=== PATIENT | male | born 1995 | race African-American/Black ===

== ENCOUNTER 2017-01-19 17:28 | Emergency (ER) | payer MEDICAID ==
[2017-01-19 18:03] VITALS: BP 117/72
--- NOTE | 2017-01-19 20:11 | ED Physician Documentation ---
History of Present Illness - Stated complaint Stated Complaint: ABD PX - Chief complaint Chief Complaint: General - Additonal information Additional information: hx from pt 21 male allergic to cats exposed to cats sneezing watery eyes cough wheezing and upper abd pain no NVD no bad food took antihistamine but not better tmax 99 needs a note for work Review of Systems Constitutional: denies: Fever, Chills Nose: reports: Congestion, Other (sneezing, watery eyes) Respiratory: reports: Dyspnea GI: reports: Abdominal Pain. denies: Nausea, Vomiting Skin: denies: Rash PD PAST MEDICAL HISTORY - Past Medical History Past Medical History: No - Past Surgical History Past Surgical History: No - Present Medications Home Medications: Ambulatory Orders Medication Instructions Recorded Confirmed Albuterol Sulfate [Proair Hfa 2 puffs INH Q4H PRN #1 inhaler 01/19/17 Inhaler] Cetirizine [ZyrTEC] 10 mg PO DAILY #5 tablet 01/19/17 Sucralfate 1 gm PO ACHS #20 tablet 01/19/17 predniSONE [Deltasone] 60 mg PO DAILY 5 Days tablet 01/19/17 - Allergies Allergies/Adverse Reactions: Allergies Allergy/AdvReac Type Severity Reaction Status Date / Time iodine Allergy Unknown Verified 01/19/17 18:03 - Social History Does the pt smoke?: No Smoking Status: Never smoker PD ED PE NORMAL - Vitals Vital signs reviewed: Yes - General General: Alert and oriented X 3 - HEENT HEENT: Other (puffy eyes, pharynx benign s swelling) - Neck Neck: Supple, no meningeal sign - Cardiac Cardiac: RRR - Respiratory Respiratory: No respiratory distress, Clear bilaterally - Abdomen Abdomen: Other (mild TTP upper abd) - Derm Derm: Normal color - Neuro Neuro: Alert and oriented X 3 Results - Vitals Vitals: Vital Signs - 24 hr 01/19/17 17:59 Temperature 36.1 C L Heart Rate 74 Respiratory 18 Rate Blood Pressure 117/72 O2 Saturation 97 Oxygen O2 Source Room air PD MEDICAL DECISION MAKING - ED course ED course: pt felt better with meds given in the ER Departure - Departure Disposition: 01 Home, Self Care Clinical Impression: Allergy to cats Condition: Good Instructions: ED Allergic Reaction General Other Prescriptions: Albuterol Sulfate [Proair Hfa Inhaler] 2 puffs INH Q4H PRN #1 inhaler PRN Reason: Shortness Of Air/Wheezing Cetirizine [ZyrTEC] 10 mg PO DAILY #5 tablet predniSONE [Deltasone] 60 mg PO DAILY 5 Days tablet Sucralfate 1 gm PO ACHS #20 tablet Forms: Activity restrictions
[2017-01-19] MEDS: ALBUTEROL NEB 2.5 MG/3 ML INH STA (20:20)
[2017-01-19] MEDS ORDERED: SUCRALFATE 1 GM/10 ML UDC ONE (20:25)
[2017-01-19] MEDS ORDERED: predniSONE 20 MG TABLET ONE (20:25)
[2017-01-19] MEDS: SUCRALFATE 1 GM/10 ML UDC PO STA (20:27)
[2017-01-19] MEDS: predniSONE 20 MG TABLET PO STA (20:27)
[2017-01-19] MEDS ORDERED: ALBUTEROL NEB 2.5 MG/3 ML INH ONE (20:31)
== END 2017-01-19 21:29 | disposition home or self-care (01) ==
LOC: EDBD → ED 17:28
DX: J30.81 Allergic rhinitis due to animal (cat) (dog) hair and dander (principal)
CPT/HCPCS: 94640; 99283

== ENCOUNTER 2017-10-06 20:25 | Emergency (ER) | payer MEDICAID ==
[2017-10-06 20:31] VITALS: BP 122/76
[2017-10-06] MEDS ORDERED: HYDROcod/ACET 5/325 Prepack 4 PO STA (20:38)
[2017-10-06] MEDS ORDERED: CLINDAMYCIN 150 MG CAPSULE PO STA (20:38)
--- NOTE | 2017-10-06 20:39 | ED Physician Documentation ---
PD HPI HEENT - Stated complaint Stated Complaint: TOOTH PX - Chief complaint Chief Complaint: Heent - History obtained from History obtained from: Patient - History of Present Illness Timing - onset: Today (He is very painful left maxillary tooth today without facial swelling or fevers.) Review of Systems Constitutional: reports: Reviewed and negative Nose: reports: Reviewed and negative Cardiac: reports: Reviewed and negative PD PAST MEDICAL HISTORY - Past Medical History Past Medical History: No - Past Surgical History Past Surgical History: No - Present Medications Home Medications: Ambulatory Orders Medication Instructions Recorded Confirmed Clindamycin [Cleocin] 300 mg PO Q6H 10 Days capsule 10/06/17 HYDROcod/ACETAM 5/325 [[place] 5/325] 1 - 2 ea PO Q6H PRN #15 tablet 10/06/17 Ibuprofen [Motrin] 800 mg PO Q8H PRN #30 tablet 10/06/17 - Allergies Allergies/Adverse Reactions: Allergies Allergy/AdvReac Type Severity Reaction Status Date / Time iodine Allergy Unknown Verified 10/06/17 20:30 - Social History Does the pt smoke?: No Smoking Status: Never smoker Does the pt drink ETOH?: Yes Does the pt have substance abuse?: No - Immunizations Immunizations are current?: Yes PD ED PE NORMAL - Vitals Vital signs reviewed: Yes - General General: Alert and oriented X 3, No acute distress - HEENT HEENT: Other (Anterior cavity left maxillary canine with filling in place behind the cavity, tooth is tender but no facial swelling or trismus.) - Neck Neck: Supple, no meningeal sign, No bony TTP - Neuro Neuro: Alert and oriented X 3, Normal speech Results - Vitals Vitals: Vital Signs - 24 hr 10/06/17 20:28 Temperature 36.8 C Heart Rate 84 Respiratory 18 Rate Blood Pressure 122/76 O2 Saturation 98 Oxygen O2 Source Room air PD MEDICAL DECISION MAKING - Sepsis Event Vital Signs: Vital Signs - 24 hr 10/06/17 20:28 Temperature 36.8 C Heart Rate 84 Respiratory 18 Rate Blood Pressure 122/76 O2 Saturation 98 Oxygen O2 Source Room air Departure - Departure Disposition: 01 Home, Self Care Clinical Impression: Pain due to dental caries Condition: Good Record reviewed to determine appropriate education?: Yes Instructions: ED Tooth Pain Prescriptions: Clindamycin [Cleocin] 300 mg PO Q6H 10 Days capsule HYDROcod/ACETAM 5/325 [[place] 5/325] 1 - 2 ea PO Q6H PRN #15 tablet PRN Reason: Pain Ibuprofen [Motrin] 800 mg PO Q8H PRN #30 tablet PRN Reason: PAIN &/OR FEVER Comments: It is very important that you follow-up with a dentist. When it comes to dental problems like yours, the emergency department can only offer a short- term solution to your long-term problem. A couple of low cost options for dental care include: [facility] in [place], calls [phone] for an appointment Or [facility] in [place], call [phone] for an appointment.
== END 2017-10-06 21:00 | disposition home or self-care (01) ==
LOC: ED 20:25
DX: K02.9 Dental caries, unspecified (principal)
CPT/HCPCS: 99283; A9270